=== PATIENT | female | born 1990 | race African-American/Black ===

== ENCOUNTER 2024-07-12 21:06 | Emergency (ER) | payer SELFPAY ==
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
[2024-07-12 22:45] VITALS: BP 116/68
== END 2024-07-13 01:07 | disposition home or self-care (01) ==
LOC: EMR 21:06
PROVIDERS: EMERGENCY PHYSICIAN Emergency Medicine
DX: O26.892 Other specified pregnancy related conditions, second trimester (principal); Z3A.18 18 weeks gestation of pregnancy; R10.30 Lower abdominal pain, unspecified; Z59.00 Homelessness unspecified; Z63.79 Other stressful life events affecting family and household
CPT/HCPCS: 99284; 76815

== ENCOUNTER 2025-03-22 18:55 | Emergency (ER) | payer OTHER, SELFPAY ==
[2025-03-22 18:58] VITALS: BP 103/64
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
--- NOTE | 2025-03-22 22:30 | EDRN ---
Pt refusing all assessments, will not answer questions. Pt appears to be in no acute distress, lying on stretcher on her phone.
--- NOTE | 2025-03-22 22:45 | EDRN ---
Pt refusing to leave, security called. Pt will not take discharge instructions.
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
== END 2025-03-22 22:55 | disposition home or self-care (01) ==
LOC: EMR 18:55
PROVIDERS: EMERGENCY PHYSICIAN Emergency Medicine
DX: Z00.00 Encounter for general adult medical examination without abnormal findings (principal)
CPT/HCPCS: 99282